=== PATIENT | female | born 1985 | race Caucasian/White ===

== ENCOUNTER 2020-03-02 02:05 | Outpatient (CLI) | payer BC, SELFPAY ==
[2020-03-02 02:34] VITALS: BMI 34.8
[2020-03-02 02:36] LABS: Bedside Glucose 101 mg/dL (70-110)
[2020-03-02 02:44] LABS: Absolute Lymphocyte Count 1.49 X10^3/uL (0.83-4.51); Basophil# 0.02 X10^3/uL; Basophil% 0.2 % (0-1); Eosinophil# 0.16 X10^3/uL; Eosinophils% 1.6 % (0-5); Hematocrit 32.6 % (37-47); Hemoglobin 10.9 g/dL (12.0-15.0); Lymphocyte # 1.49 X10^3/ul (4.0); Lymphocyte % 14.5 % (19-41); Mean Corp Hgb Conc 33.4 g/dL (32-36); Mean Corpuscular Hgb 27.8 pg (27.0-32.0); Mean Corpuscular Volume 83.2 fL (81-99); Mean Platelet Vol. 10.5 fl (6.2-12.0); Monocyte% 4.9 % (0-10); NRBC Flagged by Analyzer 0 % (0-5); Neutrophil # 8.03 X10^3/uL (2.7-7.7); Neutrophil % 78.3 % (47-70); Platelet Count 276 K/mm3 (150-450); RBC Distribution Width CV 12.8 % (11.6-14.6); RBC Distribution Width SD 38.7 fl (35.1-43.9); Red Blood Count 3.92 M/mm3 (4.2-5.4); White Blood Count 10.3 K/mm3 (4.4-11.0)
[2020-03-02 03:00] LABS: ALB/GLOB Ratio 0.7 RATIO (0.9-2.4); AST(SGOT) 33 U/L (15-37); Alanine Aminotransfer ALT/SGPT 30 U/L (13-56); Albumin, Serum 2.7 g/dL (3.2-5.0); Alkaline Phosphatase 63 U/L (45-117); Anion Gap 8 (5-15); BUN 12 mg/dL (7-18); BUN/Creat Ratio 19.3 RATIO (10-20); Calcium,Total 8.2 mg/dL (8.5-10.1); Chloride 106 mmol/L (98-107); Creatinine, Serum 0.62 mg/dL (0.55-1.02); EST Glomerular Filtration Rate 117 mL/min (>60); Est Glom Filt Rate - Afr Amer 142 mL/min (>60); Estimated Creatinine Clearance 116.13 ml/min; Globulin 3.8 g/dL (2.2-4.2); Glucose 97 mg/dL (74-106); Potassium 3.5 mmol/L (3.5-5.1); Protein, Total 6.5 g/dL (6.4-8.2); Sodium Level 138 mmol/L (136-145)
[2020-03-02] MEDS: Mag Hydrox/Al Hydrox/Simeth 30 ML UDC PO (03:09)
--- NOTE | 2020-03-02 08:43 | OB.TRI.NOTE ---
History of Present Illness Date of Service: 03/02/20 Was patient seen by the physician?: Yes Reason For Visit: N/V Date of Service: 03/02/20 Final SKYLA: 07/03/20 Gestational age: 22 Weeks and 3 Days History of Present Illness: 34-year-old G2, P1 at 22 weeks normally seen in [facility] currently on vacation arrives with sudden onset right upper quadrant pain after eating non-pasteurized cheese. Some nausea no vomiting. Denies fevers, chills, chest pain, shortness of breath, headache, visual changes, leakage of fluid, vaginal bleeding. Patient states good movement OB history: G1: 40 weeks and 2 days female G2: Current Past medical history: GDM A2 Asthma Past surgical history: Tonsils and adenoids Medications: Humalog 14 units nightly Humulin 6 units with dinner Pepcid Allergies: Latex Social: Denies smoking drinking or drug use Family: Denies history of DVT or PE Review of systems: Besides the above pertinent positive for review systems performed found to be negative Allergies avocado Allergy (Verified 03/02/20 02:53) Anaphylaxis banana Allergy (Verified 03/02/20 02:53) Anaphylaxis latex Allergy (Verified 03/02/20 02:53) Rash Penicillins Allergy (Verified 03/02/20 02:53) Rash pollen extracts Allergy (Verified 03/02/20 02:53) Itching Laboratory Studies: Laboratory Tests 03/02/20 03/02/20 03/02/20 Range/Units 02:40 02:40 02:32 WBC 10.3 (4.4-11.0) K/mm3 RBC 3.92 L (4.2-5.4) M/mm3 Hgb 10.9 L (12.0-15.0) g/dL Hct 32.6 L (37-47) % MCV 83.2 (81-99) fL MCH 27.8 (27.0-32.0) pg MCHC 33.4 (32-36) g/dL RDW Std Deviation 38.7 (35.1-43.9) fl RDW Coeff of Miller 12.8 (11.6-14.6) % Plt Count 276 (150-450) K/mm3 MPV 10.5 (6.2-12.0) fl Immature Gran % (Auto) 0.500 (0.0-0.9) % Neut % (Auto) 78.3 H (47-70) % Lymph % (Auto) 14.5 L (19-41) % Freestone % (Auto) 4.9 (0-10) % Eos % (Auto) 1.6 (0-5) % Baso % (Auto) 0.2 (0-1) % Absolute Neuts (auto) 8.0 H (2.0-7.7) X10^3/uL Absolute Lymphs (auto) 1.49 (0.83-4.51) X10^3/uL Nucleated RBC % 0 (0-5) % Sodium 138 (136-145) mmol/L Potassium 3.5 (3.5-5.1) mmol/L Chloride 106 (98-107) mmol/L Carbon Dioxide 24.0 (21.0-32.0) mmol/L Anion Gap 8 (5-15) BUN 12 (7-18) mg/dL Creatinine 0.62 (0.55-1.02) mg/dL Estim Creat Clear Calc 116.13 ml/min Est GFR (MDRD) Af Amer 142 (>60) mL/min Est GFR (MDRD) Non-Af 117 (>60) mL/min BUN/Creatinine Ratio 19.3 (10-20) RATIO Glucose 97 (74-106) mg/dL Calcium 8.2 L (8.5-10.1) mg/dL Total Bilirubin 0.40 (0.20-1.00) mg/dL AST 33 (15-37) U/L ALT 30 (13-56) U/L Alkaline Phosphatase 63 (45-117) U/L Total Protein 6.5 (6.4-8.2) g/dL Albumin 2.7 L (3.2-5.0) g/dL Globulin 3.8 (2.2-4.2) g/dL Albumin/Globulin Ratio 0.7 L (0.9-2.4) RATIO POC Glucose 101 (70-110) mg/dL Physical Exam General: Alert, Oriented x3, Cooperative, No apparent distress HEENT: Atraumatic, PERRLA, Normocephalic Abdomen: Bowel Sounds Present, Soft, Gravid - Fundus just above umbilicus, - - Tender to palpation of right upper quadrant, Madrigal sign difficult to evaluate as patient tender at costophrenic angle, no rebound tenderness or guarding. No palpable masses Neurological: Cranial nerves II-XII grossly intact [employer]CHNICIAN: Normal external genitalia Estimated gestational size: Appropriate for gestational size Cervix Dilation (cm): 0 Station: -3 Effacement (%): 0 NST - FHR Rate Baby A Baseline: 150 Uterine Activity:: Quiet Impression/Plan Assessment and plan: 34-year-old G2, P1 at 22 weeks with right upper quadrant pain cholelithiasis versus gastroenteritis. Based on exam and laboratory findings no signs of choledocholithiasis or need for urgent general surgery consultation. Patient's pain improved during visit, no nausea or vomiting. No indication for antibiotics will DC home and follow-up with primary [employer] and suggested general surgery consultation. Also discussed the risk of unpasteurized cheeses in and the risk for infection, suggested notifying rotoformer backtender and monitoring signs and symptoms of fevers and flulike symptoms.
== END 2020-03-02 03:50 | disposition home or self-care (01) ==
LOC: WPOUT 02:19 → WP 02:19
PROVIDERS: Visit Provider Obstetrics & Gynecology
DX: O26.892 Other specified pregnancy related conditions, second trimester (principal); R10.11 Right upper quadrant pain; O99.512 Diseases of the respiratory system complicating pregnancy, second trimester; J45.909 Unspecified asthma, uncomplicated; Z3A.22 22 weeks gestation of pregnancy; Z87.59 Personal history of other complications of pregnancy, childbirth and the puerperium
CPT/HCPCS: 36415; 59050; 80053; 82962; 85025; 99218; G0378